=== PATIENT | male | born 1985 | race Caucasian/White ===

== ENCOUNTER 2021-06-21 01:53 | Emergency (ER) | payer BC, OTHER ==
[2021-06-21] MEDS ORDERED: Lidocaine 1% 20 ML MDV ONE (02:31)
[2021-06-21] MEDS ORDERED: CEFAZOLIN 1 GM VIAL ONE (02:49)
[2021-06-21] MEDS ORDERED: Sterile Water 0 ML ONE (02:53)
[2021-06-21] MEDS ORDERED: Sterile Water 10 ML ONE (02:54)
[2021-06-21] MEDS ORDERED: Mupirocin 2% Ointment 22 GM Tube ONE (04:18)
== END 2021-06-21 04:32 | disposition home or self-care (01) ==
LOC: MADERS 01:53
DX: S62.637B Displaced fracture of distal phalanx of left little finger, initial encounter for open fracture (principal); F17.210 Nicotine dependence, cigarettes, uncomplicated; W23.0XXA Caught, crushed, jammed, or pinched between moving objects, initial encounter
CPT/HCPCS: 12001; 96372; J0690

== ENCOUNTER 2022-11-27 11:10 | Emergency (ER) | payer OTHER, SELFPAY | END 2022-11-27 12:38 | disposition home or self-care (01) | LOC: MADERS 11:10 | DX: S93.601A Unspecified sprain of right foot, initial encounter (principal); F17.210 Nicotine dependence, cigarettes, uncomplicated; V86.95XA Unspecified occupant of 3- or 4- wheeled all-terrain vehicle (ATV) injured in nontraffic accident, initial encounter ==

== ENCOUNTER 2023-12-06 20:35 | Emergency (ER) | payer OTHER, SELFPAY ==
[2023-12-06] MEDS ORDERED: Morphine 4 MG/ML VIAL ONE ×2 (20:51→21:21)
[2023-12-06] MEDS ORDERED: Lactated Ringer's 1,000 ML ONE (20:51)
[2023-12-06] MEDS ORDERED: Ketamine 50 MG/ML (10ML VIAL) ONE (21:22)
[2023-12-06] MEDS ORDERED: Lidocaine 1% (PF) 30 ML VIAL ONE (21:51)
[2023-12-06] MEDS ORDERED: Ondansetron PF 4 MG/2 ML Vial ONE (21:51)
[2023-12-06] MEDS ORDERED: Bupivacaine PF 0.5% 30 ML VIAL ONE (21:52)
[2023-12-06] MEDS ORDERED: Lorazepam 2 MG/ML VIAL ONE (22:10)
== END 2023-12-07 05:24 | disposition home or self-care (01) ==
LOC: MADERS 20:35
DX: S93.315A Dislocation of tarsal joint of left foot, initial encounter (principal); S92.152A Displaced avulsion fracture (chip fracture) of left talus, initial encounter for closed fracture; S92.212A Displaced fracture of cuboid bone of left foot, initial encounter for closed fracture; F17.210 Nicotine dependence, cigarettes, uncomplicated; Y30.XXXA Falling, jumping or pushed from a high place, undetermined intent, initial encounter
CPT/HCPCS: 28540; 94760; 96374; 96375; 96376; 99152; 99153; J0665; J2001; J2060; J2270; J2405; J7120